=== PATIENT | male | born 1930 | race Caucasian/White ===

== ENCOUNTER 2018-04-08 21:42 | Emergency (ER) | payer MEDICARE ==
[~2018-04-08] VITALS: Ht 177.8 cm; Wt 71.7 kg
[2018-04-08] MEDS ORDERED: ASPIR 8181 MG PO (22:16)
[2018-04-08] MEDS ORDERED: LIPITOR80 MG GT (22:17)
[2018-04-08] MEDS ORDERED: DEPAKOTE SPRIN125 MG PO (22:17)
[2018-04-08] MEDS ORDERED: UNITHROID50 MCG PO (22:18)
[2018-04-08] MEDS ORDERED: TAMIFLU75 MG PO (22:19)
[2018-04-08] MEDS ORDERED: ACETAMINOPHEN325 M1 PO (22:19)
== END 2018-04-09 01:59 | disposition home or self-care (01) ==
LOC: ED 21:42
DX: M25.551 Pain in right hip (principal); F03.90 Unspecified dementia, unspecified severity, without behavioral disturbance, psychotic disturbance, mood disturbance, and anxiety; Z79.82 Long term (current) use of aspirin; Z79.899 Other long term (current) drug therapy; W19.XXXA Unspecified fall, initial encounter
CPT/HCPCS: 70450; 71045; 73502; 80053; 80164; 81001; 85025; 85610; 85730; 99284